=== PATIENT | male | born 1990 | race Caucasian/White ===

== ENCOUNTER 2020-05-28 14:58 | Inpatient (IN) | payer OTHER ==
[2020-05-28 18:48] LABS: BASO % 1.1 % (0-2.0); EOS % 1.4 % (0-4.5); HEMOGLOBIN 14.2 GM/dL (11.7-16.9); LYMPH % 23.8 % (8-40); MCH 29.5 pg (25.7-33.7); MCHC 34.6 g/dl (32.0-35.9); MEAN CELL VOLUME 85.1 fl (80-96); MEAN PLT VOLUME 8.6 fl (7.5-11.1); MONO % 10.6 % (3.8-10.2); NEUT % 63.1 % (42.8-82.8); PLATELET COUNT 355 K/MM3 (134-434); RBC 4.82 M/mm3 (4.00-5.60); RDW 13.5 % (11.9-15.9); WHITE BLOOD COUNT 7.9 K/mm3 (4.0-10.0)
[2020-05-28 18:52] LABS: INR 1.29 (0.83-1.09); PROTHROMBIN TIME (PATIENT) 15.7 SEC (9.7-13.0)
[2020-05-28 18:54] LABS: ACTIVATED PTT 31.2 SECONDS (25.2-36.5)
[2020-05-28 19:16] LABS: CHLORIDE 105 mmol/L (98-107); POTASSIUM 4.2 mmol/L (3.5-5.1); SODIUM 137 mmol/L (136-145)
[2020-05-28 19:18] LABS: CALCIUM 8.2 mg/dL (8.5-10.1)
[2020-05-28 19:19] LABS: ALBUMIN 3.2 g/dl (3.4-5.0); ANION GAP 8 MMOL/L (8-16); BLOOD UREA NITROGEN 12.3 mg/dL (7-18); CO2 24 mmol/L (21-32); GLUCOSE,RANDOM 100 mg/dL (74-106)
[2020-05-28 19:22] LABS: CREATININE 0.8 mg/dL (0.55-1.3); SGOT/AST 50 U/L (15-37); SGPT/ALT 43 U/L (13-61)
[2020-05-28 19:23] LABS: BILIRUBIN,TOTAL 0.6 mg/dL (0.2-1); TOT PROT 7.1 g/dl (6.4-8.2)
[2020-05-28 19:25] LABS: ALK PHOS 94 U/L (45-117)
[2020-05-28 19:27] LABS: N-TERMINAL BNP 36.8 pg/ml (5-125)
[2020-05-28] MEDS ORDERED: DEXAMETHASONE SOD PHOSPHATE 10 MG/1 ML VIAL IVPUSH ONE (19:36)
[2020-05-28] MEDS ORDERED: ALBUTEROL SO4 2.5/IPRATROPIUM 0.5 INH SOL 3 ML VIAL.NEB. NEB ONE ×2 (19:40→19:44)
[2020-05-28] MEDS ORDERED: DEXAMETHASONE SOD PHOSPHATE 10 MG/1 ML VIAL ONE (19:44)
[2020-05-28] MEDS ORDERED: ENOXAPARIN NA (PORCINE) 40 MG/0.4 ML DISP.SYRIN SQ ONE ×2 (19:53→20:10)
[2020-05-28] MEDS ORDERED: ACETAMINOPHEN 1000 MG/100 ML VIAL (NON FORMULARY) IVPB ONE (19:58)
[2020-05-28 21:11] LABS: LDH 536 U/L (87-246)
[2020-05-28] MEDS ORDERED: LIDOCAINE 5% TOPICAL PATCH TP ONE (23:49)
[2020-05-29] MEDS ORDERED: CHOLECALCIFEROL (VIT D3) 1,000 UNIT (25 MCG) TABLET PO ONE (00:13)
[2020-05-29] MEDS: ASCORBIC ACID 500 MG TABLET (FP) PO SCH ×3 (00:52→21:26)
[2020-05-29 02:44] VITALS: BMI 30.2
[2020-05-29] MEDS: PANTOPRAZOLE 40 MG TABLET PO SCH (06:48)
[2020-05-29 08:36] LABS: HEMATOCRIT 40.4 % (35.4-49); HEMOGLOBIN 13.7 GM/dL (11.7-16.9); MCH 28.6 pg (25.7-33.7); MCHC 33.8 g/dl (32.0-35.9); MEAN CELL VOLUME 84.4 fl (80-96); MEAN PLT VOLUME 8.3 fl (7.5-11.1); PLATELET COUNT 373 K/MM3 (134-434); RBC 4.79 M/mm3 (4.00-5.60); RDW 13.5 % (11.9-15.9); WHITE BLOOD COUNT 4.5 K/mm3 (4.0-10.0)
[2020-05-29 08:52] LABS: POTASSIUM 4.5 mmol/L (3.5-5.1)
[2020-05-29 08:55] LABS: BLOOD UREA NITROGEN 14.5 mg/dL (7-18); CALCIUM 8.6 mg/dL (8.5-10.1)
[2020-05-29 08:56] LABS: MAGNESIUM 2.4 mg/dL (1.8-2.4)
[2020-05-29 08:58] LABS: CREATININE 0.7 mg/dL (0.55-1.3)
[2020-05-29 08:59] LABS: PHOSPHOROUS 4.3 mg/dL (2.5-4.9)
[2020-05-29 09:00] LABS: BILIRUBIN,TOTAL 0.5 mg/dL (0.2-1); TOT PROT 7.1 g/dl (6.4-8.2)
[2020-05-29] MEDS ORDERED: ENOXAPARIN NA (PORCINE) 40 MG/0.4 ML DISP.SYRIN SQ SCH (10:00)
[2020-05-29] MEDS ORDERED: CHOLECALCIFEROL (VIT D3) 1,000 UNIT (25 MCG) TABLET PO SCH (10:00)
[2020-05-29] MEDS: CHOLECALCIFEROL (VIT D3) 1,000 UNIT (25 MCG) TABLET PO SCH (11:04)
[2020-05-29] MEDS: ZINC SULFATE 220 MG CAPSULE (FP) PO SCH (11:04)
[2020-05-29] MEDS: DEXAMETHASONE SOD PHOSPHATE 4 MG/1 ML VIAL IVPUSH SCH (11:05)
[2020-05-29] MEDS ORDERED: PT OWN MED DRAWER 7, Y5N ONE (11:06)
[2020-05-29] MEDS ORDERED: LIDOCAINE PATCH REMOVAL MC SCH (12:00)
[2020-05-29] MEDS ORDERED: REMDESIVIR 200 MG in SODIUM CHLORIDE 210 ML IVPB ONE (15:00)
[2020-05-29] MEDS: ACETAMINOPHEN 325 MG TABLET (FP) PO PRN (18:09)
[2020-05-29] MEDS: APIXABAN 5 MG TABLET PO SCH (21:26)
[2020-05-30] MEDS: ACETAMINOPHEN 325 MG TABLET (FP) PO PRN (01:28)
[2020-05-30] MEDS: PANTOPRAZOLE 40 MG TABLET PO SCH (06:02)
[2020-05-30 08:49] LABS: BASO % 0.1 % (0-2.0); HEMATOCRIT 38.9 % (35.4-49); HEMOGLOBIN 13.3 GM/dL (11.7-16.9); LYMPH % 12.7 % (8-40); MCH 28.8 pg (25.7-33.7); MCHC 34.1 g/dl (32.0-35.9); MEAN CELL VOLUME 84.6 fl (80-96); MEAN PLT VOLUME 8.5 fl (7.5-11.1); MONO % 7.6 % (3.8-10.2); NEUT % 79.6 % (42.8-82.8); PLATELET COUNT 419 K/MM3 (134-434); RDW 13.5 % (11.9-15.9); WHITE BLOOD COUNT 13.5 K/mm3 (4.0-10.0)
[2020-05-30 09:10] LABS: POTASSIUM 4.4 mmol/L (3.5-5.1)
[2020-05-30 09:12] LABS: ALBUMIN 2.8 g/dl (3.4-5.0); CALCIUM 8.6 mg/dL (8.5-10.1); MAGNESIUM 2.2 mg/dL (1.8-2.4)
[2020-05-30 09:13] LABS: BLOOD UREA NITROGEN 16.7 mg/dL (7-18)
[2020-05-30 09:15] LABS: CREATININE 0.7 mg/dL (0.55-1.3)
[2020-05-30 09:16] LABS: PHOSPHOROUS 3.4 mg/dL (2.5-4.9)
[2020-05-30 09:17] LABS: BILIRUBIN,TOTAL 0.3 mg/dL (0.2-1); TOT PROT 6.5 g/dl (6.4-8.2)
[2020-05-30] MEDS: CHOLECALCIFEROL (VIT D3) 1,000 UNIT (25 MCG) TABLET PO SCH (09:37)
[2020-05-30] MEDS: ASCORBIC ACID 500 MG TABLET (FP) PO SCH ×2 (09:37→21:45)
[2020-05-30] MEDS: DEXAMETHASONE SOD PHOSPHATE 4 MG/1 ML VIAL IVPUSH SCH (09:38)
[2020-05-30] MEDS: ZINC SULFATE 220 MG CAPSULE (FP) PO SCH (09:38)
[2020-05-30] MEDS: APIXABAN 5 MG TABLET PO SCH ×2 (09:38→21:44)
[2020-05-30] MEDS: guaiFENesin/CODEINE 5 ML UNIT-DOSE CUPS PO PRN (15:24)
[2020-05-30] MEDS: REMDESIVIR 100 MG in SODIUM CHLORIDE 230 ML IVPB SCH (15:26)
[2020-05-31] MEDS: PANTOPRAZOLE 40 MG TABLET PO SCH (06:53)
[2020-05-31 08:53] LABS: BASO % 0.3 % (0-2.0); EOS % 0.1 % (0-4.5); HEMATOCRIT 39.4 % (35.4-49); HEMOGLOBIN 13.6 GM/dL (11.7-16.9); LYMPH % 22.8 % (8-40); MCH 29.3 pg (25.7-33.7); MCHC 34.5 g/dl (32.0-35.9); MEAN CELL VOLUME 84.9 fl (80-96); MEAN PLT VOLUME 8.4 fl (7.5-11.1); MONO % 10.1 % (3.8-10.2); NEUT % 66.7 % (42.8-82.8); PLATELET COUNT 456 K/MM3 (134-434); RBC 4.64 M/mm3 (4.00-5.60); RDW 13.4 % (11.9-15.9); WHITE BLOOD COUNT 10.6 K/mm3 (4.0-10.0)
[2020-05-31 10:33] LABS: POTASSIUM 4.2 mmol/L (3.5-5.1)
[2020-05-31 10:43] LABS: CALCIUM 8.2 mg/dL (8.5-10.1)
[2020-05-31 10:44] LABS: ALBUMIN 2.7 g/dl (3.4-5.0); BLOOD UREA NITROGEN 15.2 mg/dL (7-18)
[2020-05-31 10:47] LABS: CREATININE 0.7 mg/dL (0.55-1.3)
[2020-05-31 10:48] LABS: BILIRUBIN,TOTAL 0.4 mg/dL (0.2-1)
[2020-05-31 10:49] LABS: TOT PROT 6.2 g/dl (6.4-8.2)
[2020-05-31] MEDS: CHOLECALCIFEROL (VIT D3) 1,000 UNIT (25 MCG) TABLET PO SCH (10:56)
[2020-05-31] MEDS: ASCORBIC ACID 500 MG TABLET (FP) PO SCH ×2 (10:57→22:09)
[2020-05-31] MEDS: APIXABAN 5 MG TABLET PO SCH ×2 (10:57→22:09)
[2020-05-31] MEDS: ZINC SULFATE 220 MG CAPSULE (FP) PO SCH (10:57)
[2020-05-31] MEDS: guaiFENesin/CODEINE 5 ML UNIT-DOSE CUPS PO PRN ×2 (10:57→22:09)
[2020-05-31] MEDS: DEXAMETHASONE SOD PHOSPHATE 4 MG/1 ML VIAL IVPUSH SCH (10:57)
[2020-05-31] MEDS: REMDESIVIR 100 MG in SODIUM CHLORIDE 230 ML IVPB SCH (14:52)
[2020-06-01] MEDS: PANTOPRAZOLE 40 MG TABLET PO SCH (06:15)
[2020-06-01 09:09] LABS: BASO % 0.2 % (0-2.0); EOS % 0.1 % (0-4.5); HEMATOCRIT 43.1 % (35.4-49); HEMOGLOBIN 14.9 GM/dL (11.7-16.9); LYMPH % 29.1 % (8-40); MCH 29.5 pg (25.7-33.7); MCHC 34.5 g/dl (32.0-35.9); MEAN CELL VOLUME 85.5 fl (80-96); MEAN PLT VOLUME 8.3 fl (7.5-11.1); MONO % 9.4 % (3.8-10.2); NEUT % 61.2 % (42.8-82.8); PLATELET COUNT 539 K/MM3 (134-434); RBC 5.05 M/mm3 (4.00-5.60); RDW 13.6 % (11.9-15.9)
[2020-06-01 09:37] LABS: POTASSIUM 4.7 mmol/L (3.5-5.1)
[2020-06-01 09:44] LABS: BLOOD UREA NITROGEN 15.7 mg/dL (7-18)
[2020-06-01 09:47] LABS: ALBUMIN 3.2 g/dl (3.4-5.0); CALCIUM 8.3 mg/dL (8.5-10.1)
[2020-06-01 09:49] LABS: BILIRUBIN,TOTAL 0.4 mg/dL (0.2-1); CREATININE 0.8 mg/dL (0.55-1.3)
[2020-06-01] MEDS: CHOLECALCIFEROL (VIT D3) 1,000 UNIT (25 MCG) TABLET PO SCH (10:14)
[2020-06-01] MEDS: ZINC SULFATE 220 MG CAPSULE (FP) PO SCH (10:14)
[2020-06-01] MEDS: APIXABAN 5 MG TABLET PO SCH ×2 (10:14→23:22)
[2020-06-01] MEDS: DEXAMETHASONE SOD PHOSPHATE 4 MG/1 ML VIAL IVPUSH SCH (10:14)
[2020-06-01] MEDS: ASCORBIC ACID 500 MG TABLET (FP) PO SCH ×2 (10:14→23:22)
[2020-06-01] MEDS: guaiFENesin/CODEINE 5 ML UNIT-DOSE CUPS PO PRN ×2 (10:17→17:13)
[2020-06-01 11:09] LABS: ANISOCYTOSIS 0; MACROCYTOSIS 0; PLATELET ESTIMATE INCREASED
[2020-06-01 23:17] VITALS: TEMP 97.9
[2020-06-02] MEDS: PANTOPRAZOLE 40 MG TABLET PO SCH (06:08)
[2020-06-02 06:30] VITALS: BP 107/69; PULSE 65
[2020-06-02 08:42] LABS: BASO % 0.1 % (0-2.0); EOS % 0.3 % (0-4.5); HEMATOCRIT 41.9 % (35.4-49); HEMOGLOBIN 14.3 GM/dL (11.7-16.9); LYMPH % 27.6 % (8-40); MCH 29.3 pg (25.7-33.7); MCHC 34.2 g/dl (32.0-35.9); MEAN CELL VOLUME 85.6 fl (80-96); MEAN PLT VOLUME 8.2 fl (7.5-11.1); MONO % 8.2 % (3.8-10.2); NEUT % 63.8 % (42.8-82.8); PLATELET COUNT 521 K/MM3 (134-434); RDW 13.8 % (11.9-15.9); WHITE BLOOD COUNT 13.3 K/mm3 (4.0-10.0)
[2020-06-02 09:22] LABS: POTASSIUM 4.4 mmol/L (3.5-5.1)
[2020-06-02 09:32] LABS: ALBUMIN 2.9 g/dl (3.4-5.0); CALCIUM 8.2 mg/dL (8.5-10.1); MAGNESIUM 2.4 mg/dL (1.8-2.4)
[2020-06-02 09:35] LABS: CREATININE 0.7 mg/dL (0.55-1.3); PHOSPHOROUS 3.8 mg/dL (2.5-4.9)
[2020-06-02 09:37] LABS: BILIRUBIN,TOTAL 0.4 mg/dL (0.2-1); TOT PROT 6.2 g/dl (6.4-8.2)
[2020-06-02] MEDS: CHOLECALCIFEROL (VIT D3) 1,000 UNIT (25 MCG) TABLET PO SCH (10:25)
[2020-06-02] MEDS: DEXAMETHASONE SOD PHOSPHATE 4 MG/1 ML VIAL IVPUSH SCH (10:26)
[2020-06-02] MEDS: APIXABAN 5 MG TABLET PO SCH (10:26)
[2020-06-02] MEDS: ZINC SULFATE 220 MG CAPSULE (FP) PO SCH (10:26)
[2020-06-02] MEDS: ASCORBIC ACID 500 MG TABLET (FP) PO SCH (10:26)
[2020-06-02 11:52] LABS: ANISOCYTOSIS 0; MACROCYTOSIS 0; PLATELET ESTIMATE INCREASED
== END 2020-06-02 14:51 | disposition home or self-care (01) | DRG 137 ==
LOC: JER 14:58 → JERBED 20:00 → J5S 22:51
PROVIDERS: ADMIT Internal Medicine; ATTEND Internal Medicine
PROC: XW033E5 Introduction of Remdesivir Anti-infective into Peripheral Vein, Percutaneous Approach, New Technology Group 5 (ICD-10-PCS; principal; 2020-05-29)
PROC: XW13325 Transfusion of Convalescent Plasma (Nonautologous) into Peripheral Vein, Percutaneous Approach, New Technology Group 5 (ICD-10-PCS; 2020-05-29)
DX: U07.1 COVID-19 (principal); J96.01 Acute respiratory failure with hypoxia; J12.89 Other viral pneumonia; E66.9 Obesity, unspecified; Z68.30 Body mass index [BMI] 30.0-30.9, adult; R43.8 Other disturbances of smell and taste; R63.0 Anorexia; R74.01 Elevation of levels of liver transaminase levels; T37.5X5A Adverse effect of antiviral drugs, initial encounter; A08.39 Other viral enteritis
CPT/HCPCS: 36415; 36430; 71045-TC-FY; 80053; 82550; 82553; 82728; 83615; 83735; 83880; 84100; 84484; 85025; 85027; 85379; 85384; 85610; 85730; 86140; 86769; 86850; 86900; 86901; 87804; 93005; 93010; 99285-25; C9803; J0131; J1100; P9017; U0003